=== PATIENT | male | born 1985 | race Caucasian/White ===

== ENCOUNTER 2022-05-18 00:15 | Emergency (ER) | payer MEDICAID ==
[~2022-05-18] VITALS: Ht 175.3 cm; Wt 59.0 kg
[2022-05-18 00:15] VITALS: BP 113/65
== END 2022-05-18 00:36 ==
LOC: MED 00:15
DX: F10.20 Alcohol dependence, uncomplicated (principal); F15.20 Other stimulant dependence, uncomplicated; Y90.9 Presence of alcohol in blood, level not specified
CPT/HCPCS: 99283

== ENCOUNTER 2023-08-22 07:36 | Emergency (ER) | payer MEDICAID ==
[~2023-08-22] VITALS: Ht 175.3 cm; Wt 81.6 kg
[2023-08-22 07:44] VITALS: BP 131/82; PULSE 87; RESP 16; TEMP 97.7; O2SAT 100
[2023-08-22] MEDS ORDERED: ONDANSETRON 4 MG ODT PO ONE (08:05)
[2023-08-22] MEDS ORDERED: KETOROLAC 30 MG/ML VIAL IM ONE (08:05)
[2023-08-22 08:40] LABS: BASOPHILS % (AUTO) 0.3 % (0.0-2.0); EOSINOPHILS # (AUTO) 0.1 K/uL (0-0.4); EOSINOPHILS % (AUTO) 1.4 % (0.0-4.0); HEMATOCRIT 43.6 % (36-52); HEMOGLOBIN 14.8 g/dL (12.0-18.0); LYMPHOCYTES # (AUTO) 1.2 K/uL (2.0-11.5); LYMPHOCYTES % (AUTO) 20.2 % (20.5-51.1); MEAN CORPUSCULAR HEMOGLOBIN 30 pg (27-31); MEAN CORPUSCULAR HGB CONC 34 g/dL (33-37); MEAN CORPUSCULAR VOLUME 88.2 fL (80-94); MONOCYTES # (AUTO) 0.7 K/uL (0.8-1.0); MONOCYTES % (AUTO) 12.5 % (1.7-9.3); NEUTROPHILS # (AUTO) 3.8 K/uL (1.8-7.7); NEUTROPHILS % (AUTO) 65.6 % (42.2-75.2); PLATELET COUNT (AUTO) 241 K/uL (140-450); RED BLOOD CELL COUNT(AUTO) 4.94 MIL/uL (4.20-6.10); RED CELL DISTRIBUTION WIDTH 13.9 % (11.6-13.7); WHITE BLOOD COUNT (AUTO) 5.8 K/uL (4.8-10.8)
[2023-08-22 08:59] LABS: ALBUMIN 4.4 g/dL (3.4-5.0); ANION GAP 10.9 (8-16); CALCIUM 9.4 mg/dL (8.5-10.1); CARBON DIOXIDE 33.2 mmol/L (21-32); CREATININE 0.9 mg/dL (0.6-1.3); POTASSIUM 3.1 mmol/L (3.5-5.1); TOTAL BILIRUBIN 1.1 mg/dL (0.0-1.0); TOTAL PROTEIN, SERUM 8.1 g/dL (6.4-8.2)
[2023-08-22] MEDS ORDERED: POTASSIUM CHLORIDE 10 MEQ TABER PO ONE (10:10)
[2023-08-22 10:25] LABS: APPEARANCE,URINE CLEAR (CLEAR); BILIRUBIN,URINE 2+ (NEGATIVE); BLOOD, URINE NEGATIVE (NEGATIVE); COLOR,URINE YELLOW (YELLOW); LEUKOCYTE ESTERASE ,URINE NEGATIVE (NEGATIVE); NITRITE, URINE NEGATIVE (NEGATIVE); PROTEIN,URINE 1+ (NEGATIVE); UGLUCOSE NEGATIVE (NEGATIVE)
[2023-08-22 10:39] LABS: BACTERIA,URINE 0-2 /HPF (None Seen); ICTOTEST NEGATIVE (NEGATIVE); RBC,URINE 0-5 /HPF (0-5); SQUAMOUS EPITHELIAL CELL,UR 4-10 (MOD) /LPF (0-3 (FEW)); WBC,URINE 0-5 /HPF (0-5)
[2023-08-22] MEDS ORDERED: LOPE1TAB14 PO (11:11)
[2023-08-22] MEDS ORDERED: IBUP-2213 PO (11:11)
[2023-08-22 11:18] VITALS: BP 119/87; PULSE 83; RESP 15; TEMP 97.7; O2SAT 99
== END 2023-08-22 11:12 | disposition home or self-care (01) ==
LOC: MED 07:36
DX: E87.6 Hypokalemia (principal); R19.7 Diarrhea, unspecified; R10.84 Generalized abdominal pain; F15.90 Other stimulant use, unspecified, uncomplicated; Z98.890 Other specified postprocedural states; Z79.899 Other long term (current) drug therapy; Z79.1 Long term (current) use of non-steroidal anti-inflammatories (NSAID)
CPT/HCPCS: 36415; 80053; 81001; 83690; 85025; 96372; 99283; J1885; Q0162